=== PATIENT | female | born 1975 | race Caucasian/White ===

== ENCOUNTER 2018-07-08 09:07 | Outpatient (CLI) | payer MEDICAID, SELFPAY | END 2018-07-08 09:27 | PROVIDERS: Visit Provider Internal Medicine Cardiovascular Disease | DX: I35.0 Nonrheumatic aortic (valve) stenosis (principal); I10 Essential (primary) hypertension; E78.5 Hyperlipidemia, unspecified | CPT/HCPCS: 93005; 93010 ==

== ENCOUNTER 2022-02-03 08:31 | Outpatient (CLI) | payer SELFPAY ==
--- NOTE | 2022-02-03 08:30 | RT.EKG_ITS ---
APPROVED REPORT Exam: Resting ECG Reason for Exam: mi Patient Location: O HR:68 bpm ECG Measurements Heart Rate 68 AXIS MA 151 P 21 QRSd 86 QRS -16 QT 412 T -1 QTc 439 Conclusion Sinus rhythm...normal P axis, V-rate 50- 99 Left ventricular hypertrophy...multiple voltage criteria
== END 2022-02-03 08:32 | disposition home or self-care (01) ==
LOC: DI.CARD 08:32
PROVIDERS: PCP Family Medicine; Visit Provider Internal Medicine Cardiovascular Disease
DX: I21.3 ST elevation (STEMI) myocardial infarction of unspecified site (principal); I51.7 Cardiomegaly
CPT/HCPCS: 93010

== ENCOUNTER → 2022-10-26 02:35 | Outpatient (CLI) | payer OTHER, SELFPAY ==
--- NOTE | 2022-10-26 08:15 | DI.US_ITS ---
APPROVED REPORT EXAM: Comprehensive 2D, Doppler, and color-flow Echocardiogram Patient Location: Out-Patient Sales Executive Insurance: Tahir Moss RDCS Indications: check , bicuspid AOV Other Information Technically limited study due to body habitus. Conclusion Normal left ventricular wall thickness and chamber size. Ejection fraction is 60 to 65%. Wall motio n is normal Normal right ventricular size and systolic function Both atria are normal in size Aortic valve is not well visualized. Appears mildly sclerotic. There is moderate aortic stenosis. Mean gradient is 28 mmHg. Calculated aortic valve area is 1.16 cm??. There is no aortic regurgitati on Ascending aorta is normal in size Wall motion Left Ventricle The left ventricle is normal size. The left ventricular systolic function is normal. The left ventric ular ejection fraction is within the normal range. There is normal left ventricular wall thickness. T here is normal LV segmental wall motion. There is no ventricular septal defect visualized. LVEF is 60 -65%. Right Ventricle The right ventricle is normal size. The right ventricular systolic function is normal. Unable to asse ss PA pressure. Atria The left atrium size is normal. The right atrium size is normal. The interatrial septum is intact wit h no evidence for an atrial septal defect. Aortic Valve The aortic valve is not well visualized. Highest mean aortic valve gradient is 27.75 mmHg. Moderate a ortic stenosis. Calculated ROHIT by the continuity equation is 1.2 cm2. Trace aortic regurgitation. Mitral Valve The mitral valve is normal in structure. No evidence of mitral valve stenosis. Trace mitral regurgita tion. Tricuspid Valve The tricuspid valve is normal in structure. There is no tricuspid valve stenosis. There is no tricusp id valve regurgitation noted. Pulmonic Valve The pulmonary valve is normal in structure. There is no pulmonic valvular stenosis. There is no pulmo kerri valvular regurgitation. Great Vessels The aortic root is normal in size. The ascending aorta is normal in size. Aortic arch is normal in ca liber. IVC is normal in size and collapses >50% with inspiration. Pericardium There is no pericardial effusion. 2D Dimensions IVSD d PLAX 0.81 cm F: 0.6-1.0 LV Vol A2C d MOD 92.6 mL LVPW d PLAX 0.83 cm F: 0.6 - 1.0 LV Vol A4C d MOD 156.4 mL LVID d PLAX 3.31 cm F: 3.8 - 5.2 LV EF A4C MOD 61.1 % LVDs 2.20 cm F: 2.2 - 3.5 LV EF A2C MOD 68.6 % Ao Root d 2.65 cm F: 2.7 - 3.3 LV EF Biplane MOD 66.6 % Ao Asc Diam d 2.96 cm F: 2.3 - 3.1 LV EF Teichholz 62.9 % LVEF (Hahn's) 66.58 % F: 54 - 74 LV Volume 129.91 mL F: 46 - 106 LV Volume Index 65.28 mL/m2 F: 29 - 61 LV Vol Biplane MOD 129.9 mL FS 33.00 % M-Mode TAPSE 2.46 cm (M/F) >1.7 LV Diastology MV E' medial 0.095 (>0.07 m/s) E/A Ratio 0.7 LV E/e MED 6.25 (<14) MV E Vmax 0.59 (0.4-1.3 m/s) MV E' lateral 0.113 (>0.1 m/s) MV A Vmax 0.80 (0.4-1.3 m/s) LV E/e LAT 5.25 (<14) MV E/E' medial 6.25 MV E/E' lateral 5.25 MV (E/E' average) 5.71 Aortic Valve LVOT Vmax 1.31 m/s AoV Area Vmax 1.16 cm2 LVOT Peak Grad 6.9 mmHg LVOT Mean Grad 4.6 mmHg LVOT Diam s 1.95 cm AoV Peak Grad 46.0 mmHg LVOT SV 89.10 mL AoV Mean Grad 27.7 mmHg AoV Area VTI 1.24 cm2 Mitral Valve MV DT 235 (160-240 msec) Pulmonary Valve PV Mean Grad 2.5 mmHg RVOT Peak Gr. 1.45 mmHg RVOT Mean Gr. 0.90 mmHg RVOT VTI 0.145 m RVOT Vmax 0.60 m/s
== END ==
PROVIDERS: PCP Family Medicine; Visit Provider Internal Medicine Cardiovascular Disease
DX: I35.0 Nonrheumatic aortic (valve) stenosis (principal); Q23.1 Congenital insufficiency of aortic valve
CPT/HCPCS: 93306

== ENCOUNTER → 2023-10-04 01:04 | Outpatient (CLI) | payer OTHER, SELFPAY ==
--- NOTE | 2023-10-04 13:00 | DI.US_ITS ---
APPROVED REPORT EXAM: Comprehensive 2D, Doppler, and color-flow Echocardiogram Patient Location: Out-Patient Combustion Engineer: Tahir Moss RDCS (AE) Indications: moderate aortic stenosis, bicuspid aortic valve Conclusion Normal left ventricular wall thickness and chamber size. Ejection fraction is 55 to 60%. Wall motio n is normal Normal right ventricular size and function Both atria are normal in size Aortic valve is sclerotic. Number of aortic valve leaflets cannot be accurately determined. There i s mild to moderate aortic stenosis. Mean gradient is 17 mmHg. Calculated aortic valve area is 1.4 c m??. There is no aortic regurgitation Ascending aorta measures 3.54 cm Wall motion Left Ventricle The left ventricle is normal size. The left ventricular systolic function is normal. The left ventric ular ejection fraction is within the normal range. There is normal left ventricular wall thickness. T here is normal LV segmental wall motion. There is no ventricular septal defect visualized. LVEF is 55 %. Right Ventricle The right ventricle is normal size. The right ventricular systolic function is normal. Atria The left atrium size is normal. The right atrium size is normal. The interatrial septum is intact wit h no evidence for an atrial septal defect. Aortic Valve The Aortic valve is sclerotic. Aortic valve is possibly bicuspid. Peak aortic valve gradient is 25.5 3 mmHg. Highest mean aortic valve gradient is 17.23 mmHg. Calculated ROHIT by the continuity equation i s 1.4 cm2. No aortic regurgitation is present. Mitral Valve The mitral valve is normal in structure. No evidence of mitral valve stenosis. There is no mitral hector ve regurgitation noted. Tricuspid Valve The tricuspid valve is normal in structure. There is no tricuspid valve stenosis. Trace tricuspid reg urgitation. Unable to assess PA pressure. Pulmonic Valve The pulmonary valve is normal in structure. There is no pulmonic valvular stenosis. There is no pulmo kerri valvular regurgitation. Great Vessels The aortic root is normal in size. The ascending aorta is mildly dilated. Aortic arch is normal in ca liber. IVC is normal in size and collapses >50% with inspiration. Pericardium There is no pericardial effusion. 2D Dimensions IVSD d PLAX 0.56 cm F: 0.6-1.0 Ao Root d 2.29 cm F: 2.7 - 3.3 LVPW d PLAX 0.59 cm F: 0.6 - 1.0 Ao Asc Diam d 3.54 cm F: 2.3 - 3.1 LVID d PLAX 5.06 cm F: 3.8 - 5.2 LVDs 3.63 cm F: 2.2 - 3.5 LV EF Teichholz 54.2 % FS 28.19 % LV EDV (Teich) 121.3 mL LV ESV (Teich) 55.5 mL Stroke Vol Index (Teich) 34.44 M-Mode TAPSE 1.97 cm (M/F) >1.7 Auto EF LV EDV A4C 102.6 mL LV EDV A2C 100.3 mL LV EDV BP 103.1 mL LV ESV A4C 46.0 mL LV ESV A2C 44.3 mL LV ESV BP 45.5 mL LVEF(%) A4C 55.2 % LVEF(%) A2C 55.9 % LVEF(%) BP 55.9 % LV SV A4C 56.6 ml LV SV A2C 56.0 ml LV SV BP 57.7 ml LV CO A4C 4.3 L/min LV CO A2C 4.2 L/min LV CO BP 4.2 L/min HR A4C 75.63 BPM HR A2C 75.16 BPM LV EDV Index (BP) LA Volume LA Length A4C 5.5 cm LA Length A2C 5.3 cm LA Area A4C s 11.56 cm2 LA Area A2C s 15.64 cm2 LA Vol A4C A-L 20.45 mL LA Vol A2C A-L 39.48 mL LA Vol Biplane A-L 29.2 mL LA Vol/BSA A4C A-L LA Vol/BSA A2C A-L LA Vol/BSA BP A-L 15.3 mL/m2 LA Vol A4C MOD 20.6 mL LA Vol A2C MOD 37.2 mL LA Vol BP MOD 28.1 mL RA Volume RA Area A4C 7.7 cm2 RA ESV A4C (A-L) 12.4mL RA Vol/BSA A4C A-L RA Length A4C 4.0 cm RA ESV A4C (MOD) 11.4mL LV Diastology MV E' medial 0.086 (>0.07 m/s) MV E Vmax 0.76 (0.4-1.3 m/s) MV E/E' MED 8.86 (<14) MV A Vmax 1.00 (0.4-1.3 m/s) MV E' lateral 0.102 (>0.1 m/s) E/A Ratio 0.8 MV E/E' LAT 7.47 (<14) MV E' Average 0.094 m/s MV E/E'(average) 8.10 Aortic Valve AoV Vmax 2.53 m/s LVOT Vmax 0.99 m/s AoV Peak Grad 24.8 mmHg LVOT Peak Grad 3.9 mmHg AoV Area (Vmax) 1.25 cm2 LVOT VTI 0.235 m AoV Mean Grad 15.0 mmHg LVOT Mean Grad 2.4 mmHg AoV Area (VTI) 1.40 cm2 LVOT SV 74.85 mL Velocity Ratio 0.39 LVOT Diam s 2.00 cm Mitral Valve MV DT 263 (160-240 msec) MV Vmax TIPS 0.92 m/s MV Mean Grad 1.4 (<2mmHg) MV VTI 0.279 m Pulmonary Valve PV Vmax 0.96 (0.5-1.5 m/s) RVOT Vmax 0.81 m/s PV Peak Grad 3.7 mmHg RVOT Peak Gr. 2.6 mmHg PV Mean Isra 0.69 m/s RVOT VTI 0.150 m PV Mean Grad 2.1 mmHg RVOT Mean Gr. 1.4 mmHg
== END ==
PROVIDERS: PCP Family Medicine; Visit Provider Internal Medicine Cardiovascular Disease
DX: I35.0 Nonrheumatic aortic (valve) stenosis (principal); Q23.1 Congenital insufficiency of aortic valve
CPT/HCPCS: 93306

== ENCOUNTER 2023-11-12 08:49 | Outpatient (CLI) | payer OTHER, SELFPAY ==
--- NOTE | 2023-11-12 08:45 | RT.EKG_ITS ---
APPROVED REPORT Exam: Resting ECG Reason for Exam: Follow up Needed Patient Location: O HR:86 bpm ECG Measurements Heart Rate 86 AXIS IL 152 P 50 QRSd 83 QRS -2 QT 387 T 38 QTc 463 Conclusion Sinus rhythm...normal P axis, V-rate 50- 99 Probable left atrial enlargement...P >50mS, <-0.10mV V1 , early transition...QRS area>0 in V2
== END 2023-11-12 08:50 | disposition home or self-care (01) ==
LOC: DI.CARD 08:50
PROVIDERS: PCP Family Medicine; Visit Provider Internal Medicine Cardiovascular Disease
DX: I21.3 ST elevation (STEMI) myocardial infarction of unspecified site (principal); R01.1 Cardiac murmur, unspecified; Z98.890 Other specified postprocedural states; I25.10 Atherosclerotic heart disease of native coronary artery without angina pectoris; Q23.1 Congenital insufficiency of aortic valve; I35.0 Nonrheumatic aortic (valve) stenosis; I10 Essential (primary) hypertension
CPT/HCPCS: 93010